=== PATIENT | female | born 1940 | race Caucasian/White ===

== ENCOUNTER 2017-01-18 12:38 | Emergency (ER) | payer SELFPAY ==
[~2017-01-18] VITALS: Ht 167.6 cm; Wt 90.0 kg
[2017-01-18 12:41] VITALS: Ht 167.6 cm; Wt 90.0 kg
--- NOTE | 2017-01-18 14:30 | ERD ---
ER Documentation Chief Complaint Date/Time DATE: 01/18/17 TIME: 14:26 Chief Complaint Complains of SOB and chest pain since this am HPI Patient is a 76-year-old female who recently immigrated from [facility], who has history of hypertension and pulmonary embolism, who reports having dizziness and shortness of breath for 1 month. Symptoms were gradual in onset, are constant, are mild to moderate in severity. Patient has been living with her neighbor due to an argument with her sister, with whom she previously lived, who left. The patient lacks PMD, access to medications, or financial resources. Patient denies chest pain, fever, vomiting. Patient has been taking warfarin. ROS All systems reviewed and are negative except as per history of present illness. Medications Home Meds Active Scripts Amlodipine Besylate* (Norvasc*) 5 Mg Tablet, 5 MG PO DAILY for 30 Days, TAB Prov:LORETO CHIU MD 01/18/17 Warfarin Sodium* (Coumadin*) 5 Mg Tablet, 3 MG PO DAILY for 30 Days, TAB Prov:LORETO CHIU MD 01/18/17 Reported Medications Lisinopril* (Lisinopril*) Unknown Strength Tablet, PO DAILY, #30 TAB 01/18/17 Warfarin Sodium* (Coumadin*) 2.5 Mg Tablet, 2.5 MG PO DAILY, TAB 01/18/17 Allergies Allergies: Coded Allergies: No Known Allergy (Unverified , 01/18/17) PMhx/Soc Past medical history: Pulmonary embolism, hypertension Past surgical history: Cholecystectomy, hernia surgery. Social history: Denies tobacco or alcohol. FmHx Family History: No coronary disease, No diabetes Physical Exam Vitals Vital Signs Date Time Temp Pulse Resp B/P Pulse Ox O2 Delivery O2 Flow Rate FiO2 01/18/17 16:22 94 14 162/81 99 Room Air 01/18/17 12:41 98.7 95 20 199/85 96 Physical Exam Const: Alert, no acute distress Head: Atraumatic Eyes: Normal Conjunctiva, no pallor, no icterus ENT: Normal External Ears, Nose and Mouth. Moist mucous membranes Neck: Full range of motion. No JVD. No meningismus. Resp: Clear to auscultation bilaterally, no wheezes, no rales Cardio: Regular rate and rhythm, no murmurs Abd: Soft, non tender, non distended. No guarding. Skin: No petechiae or rashes Back: No midline or flank tenderness Ext: No cyanosis, or edema Neur: Awake and alert, cranial nerves II through XII intact bilaterally, moves and feels her extremities appropriately. Psych: Normal Mood and Affect Result Diagram: 01/18/17 1445 01/18/17 1445 Results 24 hrs Laboratory Tests Test 01/18/17 14:45 White Blood Count 8.210^3/ul Red Blood Count 5.2810^6/ul Hemoglobin 15.2g/dl Hematocrit 46.6% Mean Corpuscular Volume 88.3fl Mean Corpuscular Hemoglobin 28.8pg Mean Corpuscular Hemoglobin Concent 32.6g/dl Red Cell Distribution Width 13.7% Platelet Count 84798^3/UL Mean Platelet Volume 11.1fl Neutrophils % 62.4% Lymphocytes % 28.7% Monocytes % 8.2% Eosinophils % 0.4% Basophils % 0.1% Nucleated Red Blood Cells % 0.0/100WBC Neutrophils # 5.110^3/ul Lymphocytes # 2.410^3/ul Monocytes # 0.710^3/ul Eosinophils # 0.010^3/ul Basophils # 0.010^3/ul Nucleated Red Blood Cells # 0.010^3/ul Prothrombin Time 18.9Sec Prothrombin Time Ratio 1.5 INR International Normalized Ratio 1.57 Activated Partial Thromboplast Time 27.3Sec Sodium Level 141mmol/L Potassium Level 3.8mmol/L Chloride Level 106mmol/L Carbon Dioxide Level 29mmol/L Anion Gap 10 Blood Urea Nitrogen 15mg/dl Creatinine 0.78mg/dl Glucose Level 106mg/dl Calcium Level 10.9mg/dl Total Bilirubin 0.3mg/dl Direct Bilirubin 0.00mg/dl Indirect Bilirubin 0.3mg/dl Aspartate Amino Transf (AST/SGOT) 19IU/L Alanine Aminotransferase (ALT/SGPT) 22IU/L Alkaline Phosphatase 126IU/L Troponin I < 0.012ng/ml B-Type Natriuretic Peptide 149PG/ML Total Protein 8.1g/dl Albumin 4.5g/dl Globulin 3.60g/dl Albumin/Globulin Ratio 1.25 Procedures/MDM EKG read by me: Time 1253, rate 89 Rhythm: Normal sinus [place]: Left axis deviation Intervals: Normal ST-T waves: no ischemic changes Ectopy: Frequent PVCs Q-waves: No Impression: Left ventricular hypertrophy, frequent PVCs, no acute ischemia MDM: Patient is a 76-year-old female recently immigrated from [facility], and is on Coumadin for pulmonary embolism diagnosed in May or June 2016. She also has history of hypertension, but is not currently on medication due to running out of medication and not having access to medical care. The patient reports 1 month of shortness of breath and dizziness. She has benign lung exam , EKG, and chest x-ray. She has a benign neurologic examination. Labs are unremarkable. INR is slightly below therapeutic at 1.57. According to the patient, she was told that she needed to be on Coumadin for life despite the fact that she only had a single PE diagnosed. Is not clear to me why the patient would need prolonged anticoagulation, but I am not privy to the workup that was performed in [facility]. The patient is currently taking 2.5 mg of warfarin per day, and states that she is compliant. I will therefore increase her to 3 mg per day, and advised to follow-up in 1 week for INR check. I will start her on amlodipine for hypertension, and advised her to follow-up for recheck of blood pressure in 2-3 days. The patient has normal O2 saturation and no tachypnea. There are no signs of coronary ischemia on EKG or troponin, and no signs of CHF. The patient does have significant anxiety that is due to her social situation. She moved to the and was staying with her sister, who is no longer staying with her. The patient does not speak [place] and does not have access to financial resources were medical care. A social work consult was called and the delinquency prevention social worker provided her with community resource information. The patient's neighbor agreed to let her stay with her for the immediate future. I advised her to return to the ER if she experiences any acute change in her symptoms, and I emphasized the importance of follow-up for her chronic medical conditions. Departure Diagnosis: Primary Impression: Shortness of breath Additional Impression: Hypertension Hypertension type: essential hypertension Qualified Code: I10 - Essential hypertension Condition: Stable LORETO CHIU MD Jan 18, 2017 14:30
[2017-01-18] MEDS ORDERED: LISI-313 PO (14:38)
[2017-01-18] MEDS ORDERED: WARF2.5T PO (14:38)
[2017-01-18 14:54] LABS: ADD SCAN DIFF NO
--- NOTE | 2017-01-18 14:56 | RADRPT ---
PROCEDURE: XR Chest. CLINICAL INDICATION: Shortness of breath. TECHNIQUE: Single frontal view. COMPARISON: None. FINDINGS: The lungs are clear. The heart size is normal. There is calcification in the aorta consistent with atherosclerosis. There is no pleural effusion. There is no pneumothorax. IMPRESSION: 1. Atherosclerosis. 2. Otherwise normal chest radiograph. RPTAT: QQ .Lukasz Wells MD, MD Date Time Electronically viewed and signed by .Lukasz Wells MD, MD on 01/18/2017 14:56 .R/
[2017-01-18 14:59] LABS: BASOPHILS % 0.1 % (0.0-2.0); EOSINOPHILS % 0.4 % (0.0-7.0); HEMATOCRIT 46.6 % (37.0-47.0); HEMOGLOBIN 15.2 g/dl (12.0-16.0); LYMPHOCYTES # 2.4 10^3/ul (0.8-2.9); LYMPHOCYTES % 28.7 % (15.0-51.0); MEAN CORPUSCULAR HEMOGLOBIN 28.8 pg (29.0-33.0); MEAN CORPUSCULAR HGB CONC 32.6 g/dl (32.0-37.0); MEAN CORPUSCULAR VOLUME 88.3 fl (82.0-101.0); MEAN PLATELET VOLUME 11.1 fl (7.4-10.4); MONOCYTE # 0.7 10^3/ul (0.3-0.9); MONOCYTES % 8.2 % (0.0-11.0); NEUTROPHIL # 5.1 10^3/ul (1.6-7.5); NEUTROPHILS % 62.4 % (39.0-77.0); PLATELET COUNT 200 10^3/UL (140-415); RED BLOOD COUNT 5.28 10^6/ul (4.20-5.40); RED CELL DISTRIBUTION WIDTH 13.7 % (11.5-14.5); WHITE BLOOD COUNT 8.2 10^3/ul (4.8-10.8)
[2017-01-18 15:08] LABS: INR 1.57; PROTIME 18.9 Sec (12.2-14.2); PT RATIO 1.5
[2017-01-18 15:09] LABS: PARTIAL THROMBOPLASTIN TIME 27.3 Sec (25.0-35.0)
[2017-01-18 15:18] LABS: ALANINE AMINOTRANSFERASE 22 IU/L (13-69); ALBUMIN 4.5 g/dl (3.3-4.9); ALBUMIN/GLOBULIN RATIO 1.25; ALKALINE PHOSPHATASE 126 IU/L (42-121); ANION GAP 10 (8-16); ASPARTATE AMINO TRANSFERASE 19 IU/L (15-46); BILIRUBIN,INDIRECT 0.3 mg/dl (0-1.1); BILIRUBIN,TOTAL 0.3 mg/dl (0.2-1.3); BLOOD UREA NITROGEN 15 mg/dl (7-20); CALCIUM 10.9 mg/dl (8.4-10.2); CARBON DIOXIDE 29 mmol/L (21-31); CHLORIDE 106 mmol/L (97-110); CREATININE 0.78 mg/dl (0.44-1.00); GLUCOSE 106 mg/dl (70-220); POTASSIUM 3.8 mmol/L (3.5-5.1); SODIUM 141 mmol/L (135-144); TOTAL PROTEIN 8.1 g/dl (6.1-8.1)
[2017-01-18 15:28] LABS: B-TYPE NATRIURETIC PEPTIDE 149 PG/ML (0-450)
[2017-01-18 15:29] LABS: TROPONIN-I < 0.012 ng/ml (0.00-0.12)
[2017-01-18] MEDS ORDERED: AMLO5TAB4 PO (16:01)
[2017-01-18] MEDS ORDERED: WARF5TAB72 PO (16:01)
[2017-01-18 16:22] VITALS: BP 162/81; PULSE 94; RESP 14
== END 2017-01-18 16:25 | disposition home or self-care (01) ==
LOC: E/R 12:38
DX: R06.02 Shortness of breath (principal); I10 Essential (primary) hypertension; Z79.01 Long term (current) use of anticoagulants
CPT/HCPCS: 36415; 71010; 80053; 83880; 84484; 85025; 85610; 85730; 93005